=== PATIENT | female | born 1985 | race Caucasian/White ===

== ENCOUNTER 2017-08-03 16:07 | Emergency (ER) | payer SELFPAY ==
[~2017-08-03] VITALS: Ht 165.1 cm; Wt 57.0 kg
[~2017-08-03 16:07] MED LIST: ADDE30TA PO; LEVA750T PO; XANA1TAB6 PO
[2017-08-03 16:21] VITALS: BP 112/62; PULSE 86; RESP 16; TEMP 98.2; O2SAT 98
[2017-08-03 17:08] LABS: AUTOMATED NEUTROPHIL # 3.8 TH/MM3 (1.8-7.7); BASOPHIL % 0.4 % (0.0-2.0); EOSINOPHIL # 0.1 TH/MM3 (0-0.4); HEMATOCRIT 34.8 % (35.0-46.0); HEMOGLOBIN 11.5 GM/DL (11.6-15.3); LYMPH % 18.1 % (9.0-44.0); MEAN CELL VOLUME 85.4 FL (80.0-100.0); MEAN CORPUSCULAR HEMOGLOBIN 28.3 PG (27.0-34.0); MEAN CORPUSCULAR HGB CONC 33.2 % (32.0-36.0); MEAN PLATELET VOLUME 8.8 FL (7.0-11.0); MONO % 9.2 % (0.0-8.0); MONOCYTE # 0.5 TH/MM3 (0-0.9); NEUT % 70.3 % (16.0-70.0); PLATELET COUNT 161 TH/MM3 (150-450); RED BLOOD COUNT 4.07 MIL/MM3 (4.00-5.30); RED CELL DISTRIBUTION WIDTH 13.4 % (11.6-17.2); WHITE BLOOD COUNT 5.4 TH/MM3 (4.0-11.0)
--- NOTE | 2017-08-03 17:12 | RADRPT ---
EXAM DATE: 08/03/2017 5:08 PM EDT AGE/SEX: 31 years / Female INDICATIONS: Left hand redness and swelling post drug use. CLINICAL DATA: This is the patient's initial encounter. Patient reports that signs and symptoms have been present for 2 days and indicates a pain score of 0/10. MEDICAL/SURGICAL HISTORY: None. None. COMPARISON: No prior [place] exams available for comparison. FINDINGS: There is soft tissue swelling on the left hand, especially the dorsum of the hand. No acute bony abno rmalities identified. CONCLUSION: No acute bony abnormalities. Soft tissue swelling of the left hand. Electronically signed by: Lex Silver MD 08/03/2017 5:11 PM EDT
--- NOTE | 2017-08-03 17:38 | PD ---
HPI Chief Complaint: Skin Problem Time Seen by Provider: 16:29 Travel History International Travel<30 days: No Contact w/Intl Traveler<30days: No Traveled to known affect area: No History of Present Illness HPI Is a 31-year-old female here with pain and swelling in the left hand 4 days. She reports to injecting heroin into the hand and missed 4 days ago. Since that time she has had increased swelling and pain to the hand. No fever or chills. No chest pain or shortness of breath. She can freely move the fingers but has difficulty making a full fist due to the swelling. She reports aching pain within the hand. No aggravating or alleviating factors. PFSH Past Medical History ADHD: Yes Anxiety: Yes Cancer: No Cardiovascular Problems: No Diminished Hearing: No Endocrine: No Genitourinary: No Immune Disorder: No Musculoskeletal: No Neurologic: No Psychiatric: Yes Reproductive: No Respiratory: Yes ?: Not LMP: LAST MONTH : 2 Para: 1 Miscarriage: 1 : 0 Past Surgical History Abdominal Surgery: No Cardiac Surgery: Yes (CARDIAC SURGERY IN OCTOBER OF 2011 TUMOR IN [facility]) Section: Yes Ear Surgery: No Endocrine Surgery: No Eye Surgery: No Genitourinary Surgery: No Gynecologic Surgery: Yes ( 12/12) Oral Surgery: No Thoracic Surgery: No Other Surgery: Yes (OPEN HEART MASS REMOVED FROM RIGHT [facility]) Social History Alcohol Use: Yes (RARELY) Tobacco Use: Yes (1 PPD) Substance Use: No Allergies-Medications (Allergen,Severity, Reaction): Coded Allergies: red dye (Unverified Allergy, Severe, 08/03/17) Reported Meds & Prescriptions Reported Meds & Active Scripts Active No Active Prescriptions or Reported Medications Review of Systems Except as stated in HPI: all other systems reviewed are Neg General / Constitutional: No: Fever Eyes: No: Visual changes HENT: No: Headaches Cardiovascular: No: Chest Pain or Discomfort Respiratory: No: Shortness of Breath Gastrointestinal: No: Abdominal Pain Genitourinary: No: Dysuria Musculoskeletal: Positive: Pain (Left hand) Skin: No Rash Physical Exam Narrative GENERAL: Alert and well-appearing 31-year-old female SKIN: Warm and dry. HEAD: Normocephalic. EYES: No injection or drainage. NECK: Supple, trachea midline. CARDIOVASCULAR: Regular rate and rhythm. No murmur appreciated RESPIRATORY: Breath sounds equal bilaterally. No accessory muscle use. GASTROINTESTINAL: Abdomen soft, non-tender, nondistended. MUSCULOSKELETAL: No cyanosis. LUE: Notable edema to the hand extending up 1/3rd of the distal forearm. Mild erythema noted to the dorsal aspect of the hand. Can freely wiggle the fingers unable to fully make a fist due to the swelling. Normal sensation. Brisk cap refill. Data Data Last Documented VS Vital Signs Date Time Temp Pulse Resp B/P (MAP) Pulse Ox O2 Delivery O2 Flow Rate FiO2 08/03/17 16:21 98.2 86 16 112/62 (79) 98 Orders Orders Basic Metabolic Panel (Bmp) (08/03/17 16:35) Complete Blood Count With Diff (08/03/17 16:35) Iv Access Insert/Monitor (08/03/17 16:35) Hand, Complete ([id number]) (08/03/17 ) Ed Urine Pregnancytest Poc (08/03/17 16:35) Clindamycin Inj (Cleocin Inj) (08/03/17 17:45) Labs Laboratory Tests Test 08/03/17 16:50 White Blood Count 5.4 TH/MM3 Red Blood Count 4.07 MIL/MM3 Hemoglobin 11.5 GM/DL Hematocrit 34.8 % Mean Corpuscular Volume 85.4 FL Mean Corpuscular Hemoglobin 28.3 PG Mean Corpuscular Hemoglobin Concent 33.2 % Red Cell Distribution Width 13.4 % Platelet Count 161 TH/MM3 Mean Platelet Volume 8.8 FL Neutrophils (%) (Auto) 70.3 % Lymphocytes (%) (Auto) 18.1 % Monocytes (%) (Auto) 9.2 % Eosinophils (%) (Auto) 2.0 % Basophils (%) (Auto) 0.4 % Neutrophils # (Auto) 3.8 TH/MM3 Lymphocytes # (Auto) 1.0 TH/MM3 Monocytes # (Auto) 0.5 TH/MM3 Eosinophils # (Auto) 0.1 TH/MM3 Basophils # (Auto) 0.0 TH/MM3 CBC Comment DIFF FINAL Differential Comment Blood Urea Nitrogen 22 MG/DL Creatinine 0.67 MG/DL Random Glucose 106 MG/DL Calcium Level 8.5 MG/DL Sodium Level 140 MEQ/L Potassium Level 3.9 MEQ/L Chloride Level 107 MEQ/L Carbon Dioxide Level 26.8 MEQ/L Anion Gap 6 MEQ/L Estimat Glomerular Filtration Rate 103 ML/MIN MDM Medical Decision Making Medical Screen Exam Complete: Yes Emergency Medical Condition: Yes Differential Diagnosis Abscess, deep space infection, cellulitis Narrative Course 31-year-old female here with left hand pain and swelling 4 days. She has a history of IV drug use. The infection started at the site of a venipuncture. She has diffuse swelling and tenderness over the dorsal aspect of the hand. There is no superficial drainable abscess identified. I suspect the infection involves deeper structures. Workup was initiated. Patient then informed me she would not agree to admission in the hospital and wanted to sign out AMA. Risk of sepsis, limb loss and discussed with patient. She assumes these risks and wishes to sign out. She will be given a prescription for clindamycin and strongly encouraged to return. Diagnosis Primary Impression: Cellulitis Qualified Codes: L03.114 - Cellulitis of left upper limb Scripts Clindamycin (Clindamycin) 300 Mg Cap 300 MG PO Q6H for Infection for 10 Days, #40 CAP 0 Refills Prov: Chantal Mansfield 08/03/17 Disposition: 07 AGAINST MEDICAL ADVICE Chantal Mansfield August 03, 2017 17:38
[2017-08-03 17:42] LABS: CALCIUM 8.5 MG/DL (8.5-10.1)
[2017-08-03 17:43] LABS: BICARBONATE 26.8 MEQ/L (21.0-32.0)
[2017-08-03] MEDS ORDERED: CLINDAMYCIN INJ 600 MG in SODIUM CHLORIDE 0.9% INJ 100 ML IV ONE (17:45)
[2017-08-03 17:46] LABS: CREATININE 0.67 MG/DL (0.50-1.00)
[2017-08-03] MEDS ORDERED: CLIN300C5 PO (18:00)
== END 2017-08-03 18:58 | disposition left against medical advice (07) ==
LOC: PHEFT 16:07
DX: L03.114 Cellulitis of left upper limb (principal); F11.90 Opioid use, unspecified, uncomplicated; F90.9 Attention-deficit hyperactivity disorder, unspecified type; F41.9 Anxiety disorder, unspecified; F17.200 Nicotine dependence, unspecified, uncomplicated; Z53.20 Procedure and treatment not carried out because of patient's decision for unspecified reasons
CPT/HCPCS: 73130; 80048; 84703; 85025; 96374